=== PATIENT | male | born 1945 | race Caucasian/White ===

== ENCOUNTER 2021-03-10 02:00 | Emergency (ER) | payer MEDICARE, OTHER ==
[~2021-03-10] VITALS: Ht 175.3 cm; Wt 79.4 kg
[2021-03-10] MEDS ORDERED: IV NORMAL SALINE 1000 ML BAG IV ONE (02:30)
[2021-03-10 02:53] LABS: HEMATOCRIT 31.8 % (36.7-47.1); MEAN CORPUSCULAR VOLUME 66.6 fL (73.0-96.2); PLATELET COUNT (AUTO) 247 K/uL (152-348)
--- NOTE | 2021-03-10 02:53 | NUR ---
With use of translation phone as patient speaks [employer] language. 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 In review of questions for Cat scan abdoment/pelvis with contrast patient disclosed he takes metformin when he eats sugar to prevent diabetes. Dr. Osborne changed Cat scan to no contrast.
[2021-03-10 02:58] LABS: CREATININE 0.9 mg/dL (0.6-1.3); POTASSIUM 3.5 mmol/L (3.5-5.1)
[2021-03-10 03:04] LABS: BILIRUBIN,DIRECT 0.2 mg/dL (0.0-0.2); BILIRUBIN,TOTAL 1.2 mg/dL (0.2-1.0); TOTAL PROTEIN, SERUM 7.2 g/dL (6.4-8.2)
--- NOTE | 2021-03-10 03:39 | NUR ---
IV removed. Catheter intact and site benign. Pressure and 4x4 gauze applied to site. No bleeding noted.
[2021-03-10] MEDS ORDERED: NEOM10DR11 EACH EAR (03:59)
[2021-03-10 04:38] VITALS: BP 128/72
--- NOTE | 2021-03-10 04:38 | NUR ---
Patient discharged to home in stable condition. Written and verbal after care instructions given. Patient verbalizes understanding of instructions. Stressed follow up or return to ER for worsening s/s.
== END 2021-03-10 04:41 | disposition home or self-care (01) ==
LOC: ER 02:06
DX: H61.21 Impacted cerumen, right ear (principal); R10.84 Generalized abdominal pain; D50.9 Iron deficiency anemia, unspecified; I70.0 Atherosclerosis of aorta
CPT/HCPCS: 36415; 70030-TC; 71045; 83605; 83690; 85025; 93005; A4663; J7030